=== PATIENT | female | born 1955 | race American Indian/Alaskan Native ===

== ENCOUNTER 2018-02-25 12:48 | Outpatient (CLI) | payer BC ==
[2018-02-25] MEDS ORDERED: XYLOCAINE TOPICAL 4% TP ONE (12:50)
[2018-02-25] MEDS ORDERED: AD OINTMENT TP PRN (12:50)
== END 2018-02-25 12:49 | disposition home or self-care (01) ==
LOC: WOUND 12:48
PROVIDERS: ATTEND Surgery
DX: E11.622 Type 2 diabetes mellitus with other skin ulcer (principal); L97.812 Non-pressure chronic ulcer of other part of right lower leg with fat layer exposed; I10 Essential (primary) hypertension
CPT/HCPCS: 11042; 11045; G0463; 99205; A6250

== ENCOUNTER 2018-02-25 14:44 | Outpatient (CLI) | payer BC ==
[2018-02-25 15:05] LABS: Basophils # (Auto) 0.1 K/mm3 (0.0-0.1); Basophils % (Auto) 0.7 % (0.0-1.8); Eosinophils # (Auto) 0.6 K/mm3 (0.0-0.4); Eosinophils % (Auto) 9.3 % (0.0-4.3); Hematocrit 35.6 % (30.3-42.9); Hemoglobin 11.3 gm/dl (10.1-14.3); Lymphocytes # (Auto) 1.3 K/mm3 (1.2-5.4); Lymphocytes % (Auto) 18.7 % (13.4-35.0); Mean Corpuscular HGB Conc 32 % (30-34); Mean Corpuscular Volume 82 fl (79-97); Monocytes # (Auto) 0.6 K/mm3 (0.0-0.8); Monocytes % (Auto) 8.6 % (0.0-7.3); Platelet Count 259 K/mm3 (140-440); Red Blood Count 4.34 M/mm3 (3.65-5.03); Red Cell Distribution Width 15.3 % (13.2-15.2)
== END 2018-02-25 14:45 | disposition home or self-care (01) ==
LOC: LAB 14:44
PROVIDERS: ATTEND Surgery
DX: E11.628 Type 2 diabetes mellitus with other skin complications (principal); L97.212 Non-pressure chronic ulcer of right calf with fat layer exposed
CPT/HCPCS: 36415; 85025

== ENCOUNTER 2018-02-27 10:14 | Outpatient (CLI) | payer BC ==
--- NOTE | 2018-02-27 16:59 | Vascular Lab Report ---
FINAL REPORT EXAM: VL VENOUS DUPLEX LE BILAT HISTORY: PAIN AND SWELLING COMPARISON: None. TECHNIQUE: Duplex Doppler imaging of the veins of the bilateral lower extremities was performed. FINDINGS: The right common femoral vein, superficial femoral vein, popliteal vein, posterior tibial vein and pe roneal vein are patent, compressible, and demonstrate normal waveforms and augmentation. The left common femoral vein, superficial femoral vein, popliteal vein, posterior tibial vein, and pe roneal vein are patent, compressible, and demonstrate normal waveforms and augmentation. There is bilateral calf edema. IMPRESSION: No evidence of deep venous thrombosis. Bilateral calf edema.
== END 2018-02-27 10:15 | disposition home or self-care (01) ==
LOC: VAS 10:14
PROVIDERS: ATTEND Surgery
DX: R60.0 Localized edema (principal)
CPT/HCPCS: 93970

== ENCOUNTER 2018-03-04 11:02 | Outpatient (CLI) | payer BC | END 2018-03-04 11:03 | disposition home or self-care (01) | LOC: WOUND 11:02 | CPT/HCPCS: 99214; G0463 ==

== ENCOUNTER 2018-03-11 11:01 | Outpatient (CLI) | payer BC | END 2018-03-11 11:02 | disposition home or self-care (01) | LOC: WOUND 11:01 | CPT/HCPCS: 99213; G0463 ==

== ENCOUNTER 2018-04-29 10:50 | Outpatient (CLI) | payer BC ==
--- NOTE | 2018-04-29 15:20 | Mammography Report ---
BILATERAL DIGITAL SCREENING MAMMOGRAM with CAD: 04/29/18 10:50:00 CLINICAL: Routine screening. COMPARISON:None available. FINDINGS: The breasts are almost entirely fatty. No mass, architectural distortion or suspicious calcifications. IMPRESSION: No mammographic evidence of malignancy. BI-RADS CATEGORY: 1 - - Negative RECOMMENDATION: Routine mammographic screening in one year. COMMENT: Patient follow-up letters are generated by our [employer] application.
== END 2018-04-29 10:51 | disposition home or self-care (01) ==
LOC: MAMMO 10:50
PROVIDERS: ATTEND Internal Medicine
DX: Z12.31 Encounter for screening mammogram for malignant neoplasm of breast (principal)
CPT/HCPCS: 77067

== ENCOUNTER 2018-08-11 07:49 | Day surgery (SDC) | payer BC ==
[2018-08-11] MEDS ORDERED: NACL 0.9% 1000 ML 1,000 ML IV SCH (08:00)
[2018-08-11] MEDS ORDERED: WATER FOR IRRIG STERILE IR ONE (08:23)
[2018-08-11] MEDS ORDERED: DIPRIVAN 10 MG/ML IV ONE ×2 (08:43→08:45)
[2018-08-11] MEDS ORDERED: VERSED ONE (08:45)
[2018-08-11] MEDS ORDERED: XYLOCAINE MPF 2% ONE (08:47)
[2018-08-11] MEDS ORDERED: NEO SYNEPHRINE ONE (08:47)
--- NOTE | 2018-08-11 08:49 | Anesthesia Day of Surgery ---
Anesthesia Day of Surgery - Day of Surgery Patient Examined: Yes Patient H&P Reviewed: Yes Patient is NPO: Yes Beta Blockers: No
--- NOTE | 2018-08-11 08:50 | Anesthesia Consultation ---
Anesthesia Consult and Med Hx Date of service: 08/11/18 - Airway Anesthetic Teeth Evaluation: Good ROM Head & Neck: Adequate Mallampati Class: Class III Intubation Access Assessment: Possibly Difficult - Pulmonary Exam CTA: Yes - Cardiac Exam Cardiac Exam: No Murmur - Pre-Operative Health Status ASA Pre-Surgery Classification: ASA3 Proposed Anesthetic Plan: MAC - Pulmonary Hx Asthma: Yes - Cardiovascular System Hx Hypertension: Yes - Endocrine Hx Non-Insulin Dependent Diabetes: Yes - Other Systems Hx Obesity: Yes
--- NOTE | 2018-08-11 09:23 | Short Stay Summary ---
Short Stay Documentation Date of service: 08/11/18 Narrative H&P: The patient presents for screening colonoscopy. Average risks, no prior studies. - History Past Medical History: arthritis, diabetes, hypertension, other (morbid obesity) Past Surgical History: Other (joint replacement surgery) Social history: no significant social history, no smoking, no alcohol abuse - Allergies and Medications Current Medications: Allergies No Known Allergies Allergy (Unverified 02/25/18 12:49) Home Medications Medication Instructions Recorded Confirmed Last Taken Type Amlodipine Besylate 5 - 20 mg PO DAILY 08/10/18 08/10/18 Unknown History Aspirin BABY CHEW TAB 81 mg PO DAILY 08/10/18 08/10/18 Unknown History Pioglitazone 30 mg PO DAILY 08/10/18 08/10/18 Unknown History Pravastatin 40 mg PO DAILY 08/10/18 08/10/18 Unknown History metFORMIN 500 mg PO DAILY 08/10/18 08/10/18 Unknown History Active Medications Sodium Chloride (Nacl 0.9% 1000 Ml) 1,000 mls @ 50 mls/hr IV DIRECT ELDA Last Admin: 08/11/18 08:48 Dose: 50 mls/hr Documented by: - Physical exam General appearance: no acute distress, well-nourished, obese Integumentary: no rash, no growths, no abnormal pigmentation HEENT: Atraumatic, PERRLA, EOMI, Mucous membr. moist/pink Lungs: Clear to auscultation Breasts: deferred Heart: Regular rate, Normal S1, Normal S2, No murmurs Gastrointestinal: normoactive bowel sounds, no tenderness, no distended, no masses, no guarding, no organomegaly, obese Female Genitourinary: deferred Rectal Exam: normal exam-external/orifice, no mass Extremities: no ischemia, pulses intact, pulses symmetrical, No edema, normal temperature, normal color, Full ROM Neurological: Normal gait, Normal speech, Strength at 5/5 X4 ext, Normal tone, Sensation intact, Cranial nerves 3-12 NL - Brief post op/procedure progress note Date of procedure: 08/11/18 Findings: report dictated Estimated blood loss: none Pathology: none Condition: stable - Disposition Condition at discharge: Good Disposition: DC-01 TO HOME OR SELFCARE - Discharge Diagnoses (1) Colon cancer screening Status: Acute Short Stay Discharge Plan Activity: other (no driving for 24 hours) Weight Bearing Status: Weight Bear as Tolerated Diet: diabetic Follow up with: DAVID MICHAELS MD [Primary Care Provider] - 7 Days
--- NOTE | 2018-08-11 09:25 | Operative Report ---
Operative Report Operative Report: Date of procedure: 08/11/2018 Preprocedure diagnosis: Cancer screening, average risk. No prior studies. Post procedure diagnosis: Moderate diverticulosis of the left colon. Procedure: Colonoscopy to the cecum Endoscopist: Dr. Sarah Anesthesia: Monitored anesthesia care per anesthesia department Estimated blood loss: 0 Medications: Monitored anesthesia care. See separate report by anesthesia for details. After careful discussion of the nature and purpose of the procedure as well as details of the technique risks benefits and alternatives the patient gave consent. Please see recent history and physical from the office. The patient was placed in the left lateral decubitus position and medicated per anesthesia. A rectal exam was performed sphincter tone was normal there were no masses palpable. The [employer] 570 scope was passed transanally and advanced under continuous direct vision without difficulty to the cecum. The colon was well prepared. The cecum was normal. The ascending colon was normal and on forward and retroflexed views. The transverse colon was normal. There were scattered diverticula throughout the descending colon and sigmoid colon. The rectum was normal on forward and retroflexed views. The procedure was well-tolerated overall and the patient was observed in recovery. Conclusions: Moderate diverticulosis of the sigmoid and descending colon, otherwise normal study. Plan: Repeat colonoscopy in 10 years, sooner if clinically indicated. Signed electronically: Rajesh Sarah M.D.
[2018-08-11 09:45] VITALS: BP 167/83
== END 2018-08-11 07:50 | disposition home or self-care (01) ==
LOC: GIO 07:49
PROVIDERS: ATTEND Internal Medicine Gastroenterology
DX: Z12.11 Encounter for screening for malignant neoplasm of colon (principal); K57.30 Diverticulosis of large intestine without perforation or abscess without bleeding; J45.909 Unspecified asthma, uncomplicated; I10 Essential (primary) hypertension; E11.9 Type 2 diabetes mellitus without complications; E66.9 Obesity, unspecified; E78.00 Pure hypercholesterolemia, unspecified; Z68.42 Body mass index [BMI] 45.0-49.9, adult; Z79.84 Long term (current) use of oral hypoglycemic drugs; Z79.899 Other long term (current) drug therapy; Z98.890 Other specified postprocedural states
CPT/HCPCS: 45378; 82962; J2250; J2370; J2704; J7030